=== PATIENT | female | born 1995 | race American Indian/Alaskan Native ===

== ENCOUNTER 2017-05-14 10:41 | Inpatient (IN) | payer BC, MEDICAID ==
[2017-05-14] MEDS ORDERED: Acetaminophen 325 MG Tab PO PRN ×2 (12:20→14:07)
[2017-05-14] MEDS ORDERED: Lactated Ringers 500 ML IV ONE (12:20)
[2017-05-14] MEDS ORDERED: Misoprostol 400 MCG (4 X 100 MCG TAB) RECTAL PRN (12:20)
[2017-05-14] MEDS ORDERED: Methylergonovine 0.2 MG/1 ML Amp IM PRN (12:20)
[2017-05-14] MEDS ORDERED: Lidocaine 1% 30 ML SDV INJECT PRN (12:20)
[2017-05-14] MEDS ORDERED: Carboprost Tromethamine 250 MCG/1 ML Amp IM PRN (12:20)
[2017-05-14] MEDS ORDERED: Sodium Chloride 0.9% 10 ML Syringe FLUSH PRN ×2 (12:20→14:07)
[2017-05-14] MEDS ORDERED: Ondansetron 4 MG/2 ML SDV IV PRN (12:20)
[2017-05-14] MEDS ORDERED: Lactated Ringers 1,000 ML IV SCH (12:30)
[2017-05-14] MEDS ORDERED: Misoprostol 25 MCG (1/4 of 100 MCG) Tab VAG PRN (14:07)
[2017-05-14] MEDS ORDERED: Oxytocin/Normal Saline 30 UNIT/500 ML BAG IV SCH (14:15)
[2017-05-14] MEDS ORDERED: fentaNYL 100 MCG/2 ML SDV ITHECAL ONE (14:26)
[2017-05-14] MEDS: Lactated Ringers 1,000 ML IV SCH ×4 (14:27→23:22)
[2017-05-14] MEDS ORDERED: fentaNYL 100 MCG/2 ML SDV ONE (20:24)
--- NOTE | 2017-05-14 20:59 | PCM.SN ---
- Free Text/Narrative Note: Called to provide labor pain relief via intrathecal for this patient. After hx reviewed, NPO status, recent VS obtained, monitors on, and consent signed, proceeded with intrathecal. With patient in sitting position, sterile prep/ drape. Skin wheal at L3-4 with 1% lidocaine. LP X1 at L3-4 with 24 g pencan spinal needle. Positive, clear, free flowing CSF. No heme, no paresthesia. Then 6mg mpf HB spinal 0.75% marcaine, 20mcg sufenta, 30mcg fentanyl, 0.4ml preservative free normal saline plus epi wash given intrathecal. Maternal B/P and FHT stable after. Block to around T4, pt reported pain relief with subsequent contractions.
[2017-05-14] MEDS: Prenatal Multivitamin with Calcium/Folic Acid/Iron Tab PO SCH (21:03)
[2017-05-14] MEDS: Ferrous Sulfate 325 MG Tab PO SCH (21:03)
--- NOTE | 2017-05-14 22:19 | HP ---
HISTORY OF PRESENT ILLNESS: This very pleasant 21-year-old 2, para 1 patient is now at 39 weeks 6 days' gestation. She is followed by Dr. Willingham, and I have seen her 2 or 3 times in the clinic prenatally as well. Her LMP was 07/27/2016 and would have given an CAT of 05/03/2017. Also, a very early ultrasound gives perhaps a more accurate CTA of 05/15/2017. She is currently at 39 weeks 6 days' gestation by those parameters. She has had frequent false labor recently and has had a couple or more brief visits to Labor and Delivery for her false labor recently. She did come in to the hospital this morning on Tuesday with a history of having spontaneous rupture of membranes at 10:00 a.m. today. The fluid was clear. She has been experiencing good movement lately. Her course reveals that she has had some anxiety and depression in the , and this has been controlled very nicely with Zoloft. She is known to be GBS negative, and blood type is A positive. It should be mentioned that her rubella testing is equivocal, and she will need vaccination with MMR. Please see the EHR as it pertains to the remainder of her history. PAST OBSTETRICAL HISTORY: She did have a 6-pound 14-ounce baby delivered by Dr. Licona in [place] in 2012. PAST MEDICAL HISTORY: She denies any knowledge of heart, lung, liver, or kidney disease. ALLERGIES: Amoxicillin and other penicillins cause hives. PREVIOUS SURGICAL HISTORY: Consists of cholecystectomy and wisdom tooth extraction. Her anxiety and depression have been stable in . MEDICATIONS: Other medication along with her vitamin does consist of Zoloft 50 mg daily. FAMILY HISTORY: Essentially noncontributory. SOCIAL HISTORY: She does live in [facility]. She denies the usage of alcohol, denies smoking, and denies illicit drugs. 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 Her significant other is Truong, and he will be arriving shortly for her labor. PHYSICAL EXAMINATION: Admission Vital Signs: Within normal limits. Please see the EHR. HEENT: Sclerae are nonicteric. Lungs: Clear to A. Heart: Regular rhythm without murmur. Abdomen: Gravid, and heart tones are category 1 with a 144 baseline. There is negative CVA tenderness. Pelvic: Initial pelvic exam is done by the nurses, and her cervix is still quite posterior as before, and the nurses find it hard to reach the cervix, but felt that it might be 1 cm to 1.5 cm in posterior. Vertex is the presenting part. Extremities: DTRs are normoreflexic, and there is no ankle edema. Neurologic: Grossly intact. IMPRESSION: A 21-year-old 2, para 1, who is in early labor with her contractions being about every 6 minutes apart. heart tones are category 1. She is at 39 weeks 6 days' gestation by good dates and ultrasound. She has had spontaneous rupture of membranes at 10:00 a.m. today. We will give her a chance for a few more hours to go into better quality spontaneous labor. If her contractions did not improve in quality over the next 2 to 3 hours or so, we will consider judicious augmentation of labor with IV Pitocin. The patient is in agreement with that, and we have thoroughly discussed that matter with her. We do anticipate spontaneous vaginal delivery. The patient does need MMR vaccination in the . Please see the admission lab data and admission orders. [facility] /[id number]
[2017-05-15] MEDS ORDERED: Oxytocin 10 Units/1 ML SDV IM PRN (00:39)
[2017-05-15] MEDS ORDERED: Simethicone 80 MG Tab.Chew PO PRN (00:39)
[2017-05-15] MEDS ORDERED: Zolpidem 5 MG Tab PO PRN (00:39)
[2017-05-15] MEDS ORDERED: Acetaminophen 325 MG Tab PO PRN (00:39)
[2017-05-15] MEDS ORDERED: Misoprostol 400 MCG (4 X 100 MCG TAB) RECTAL PRN (00:39)
[2017-05-15] MEDS ORDERED: Carboprost Tromethamine 250 MCG/1 ML Amp IM PRN (00:39)
[2017-05-15] MEDS ORDERED: Sodium Chloride 0.9% 10 ML Syringe FLUSH PRN (00:39)
[2017-05-15] MEDS ORDERED: Benzocaine/Menthol 20%-0.5% Spray 56 GM Canister TOP PRN (00:39)
--- NOTE | 2017-05-15 06:01 | DEL ---
DATE: DESCRIPTION: Diamante Rowe did require IV Pitocin augmentation of labor today. We did not need more than 11 milliunits of Pitocin to establish good quality of labor. She did have some episodes of variable deceleration seen at times and these variables would go down to the 90 and once in a while to the 80 range with good recovery. There was moderate variability and heart tone accelerations present. Also on our vaginal exams, there was always nice heart tone acceleration with scalp stimulation at examinations. She did proceed on to complete dilation and did begin pushing. Please see the EHR for the timing of her complete dilatation. She was able to bring the baby's head down nicely to the floor of the perineum or at +3 station or below. Once again she did begin to have the variable decelerations and at times this was bradycardia that would go into the 80s and briefly into the 70s. There was not as good a return to normal as previously in the labor and therefore when the baby's head was definitely on the floor of the perineum, I did elect to do a small to average midline episiotomy and employ the outlet or low forceps assist just because of her not being able to push the baby out and with this degree of bradycardia. We were able to get good traction and carefully using the Fernando Kiki or outlet forceps, we were able to bring the baby a little bit lower and right to the outlet and right to the introitus and then the forceps were removed. Now, the remainder of the delivery was accomplished as a spontaneous vaginal delivery from the occiput anterior position. We did not really witness a nuchal cord or shoulder cord as such. The baby was immediately suctioned upon delivery and had excellent muscle tone and good color. The scores were 9 and 10 on this viable baby girl. The weight was later reported as 8 pounds 3 ounces. A sample of cord blood was obtained. The baby was placed on the mother's abdomen and suctioned a bit further and remained in excellent condition at all times. The placenta was delivered spontaneously from the shiny Smith configuration. Placenta was spontaneous and intact. Estimated blood loss was approximately 200 mL. Vaginal canal was closely inspected and there were no vaginal or cervical lacerations. The patient did have a midline episiotomy in the second degree. IV Pitocin was now begun and the uterus did contract down nicely. The episiotomy repair was done by myself using 3-0 Vicryl. The patient had excellent analgesia from her intrathecal. The episiotomy repair was done without difficulty in the usual fashion. Sponge and instrument count was reported as correct. Her fundus remains firm with only minimal bleeding at this time. Her baby continues to do very well. [facility] /[id number]
[2017-05-15] MEDS: Prenatal Multivitamin with Calcium/Folic Acid/Iron Tab PO SCH ×2 (09:39→09:48)
[2017-05-15] MEDS: Ferrous Sulfate 325 MG Tab PO SCH (09:39)
[2017-05-15] MEDS: Docusate Sodium 100 MG Cap PO PRN ×2 (09:39→20:11)
[2017-05-15] MEDS: Ibuprofen 800 MG Tab PO PRN ×2 (09:39→20:11)
--- NOTE | 2017-05-15 11:41 | PN ---
DATE: 05/15/2017 SUBJECTIVE: In general, Diamante is doing very well today. She was able to get a moderate amount of rest early this morning after the delivery. She is breast feeding at the present time. She denies any significant complaints. OBJECTIVE: Her hemoglobin this morning is still pending. Her admission hemoglobin yesterday was 11.6. Vital Signs: All within normal limits including being afebrile. Abdomen: Soft and fundus is firm and appears to be involuting appropriately. Lochia flow is within normal limits. Extremities: Negative including negative Homans sign bilaterally. IMPRESSION: Stable course. Please see the EHR and early this morning dictation of delivery note. PLAN: The patient will do progressive ambulation and continue with adequate hydration and healthy nutritional measures. We did discuss with her some of the discharge instructions today, but we will thoroughly review all of those instructions again tomorrow. She will be discharged home tomorrow with baby. As mentioned above, she and her baby continue to do very well. [facility] /[id number]
[2017-05-15] MEDS ORDERED: Sertraline 50 MG Tab PO SCH (21:00)
[2017-05-16] MEDS: Prenatal Multivitamin with Calcium/Folic Acid/Iron Tab PO SCH ×2 (08:18→16:11)
[2017-05-16] MEDS: Ferrous Sulfate 325 MG Tab PO SCH (08:18)
[2017-05-16] MEDS: Ibuprofen 800 MG Tab PO PRN (08:18)
[2017-05-16] MEDS: Docusate Sodium 100 MG Cap PO PRN (08:19)
[2017-05-16 08:29] VITALS: BP 119/76
--- NOTE | 2017-05-16 08:49 | PCM.DCSUM1 ---
Discharge Summary - Hospital Course Free Text/Narrative:: 21-year-old now status post forceps assisted normal spontaneous vaginal delivery at 39 weeks 6 days gestation - Discharge Data Discharge Date: 05/16/17 Discharge Disposition: Home, Self-Care 01 Condition: Good - Patient Summary/Data Operative Procedure(s) Performed: None Complications: None Consults: None Labs Pending at D/C: None Recommended Follow-up Testing/Procedures: None Planned Operative Procedure(s) after DC: None Hospital Course: Unremarkable (please see subjective section) - Patient Instructions Diet: Usual Diet as Tolerated Activity: No Lifting Over 20 Pounds Driving: May Drive Today Showering/Bathing: May Shower Notify Provider of: Fever, Increased Pain, Swelling and Redness, Drainage, Nausea and/or Vomiting - Discharge Plan Home Medications: Home Meds Ferrous Sulfate 325 mg PO DAILY 05/11/17 [History] Avv492/FA/Omega3/Dha/Fish Oil [ Gummies] 1 each PO DAILY 05/11/17 [ History] Sertraline [Zoloft] 50 mg PO BEDTIME 05/11/17 [History] Ibuprofen [IJD: Ibuprofen] 800 mg PO Q8H PRN #0 tablet 05/16/17 [Rx] Patient Handouts: Episiotomy, Care After, Care After Vaginal Delivery Referrals: Safia Willingham MD [Primary Care Provider] - (6 week check up- please make that as it is convenient for you) - Discharge Summary/Plan Comment DC Time >30 min.: No Discharge Summary/Plan Comment: patient discharged home. Will follow-up in 6 weeks for routine visit. Reasons to return sooner were discussed with the patient. She voiced her understanding, and all questions were answered. Safia Willingham MD - General Info Date of Service: 05/16/17 Subjective Update: 21-year-old day #2 status post forceps assisted normal spontaneous vaginal delivery. Patient is doing well today. She still notes some perineal discomfort but states this is well-controlled with Tylenol and ibuprofen. She is tolerating a general diet. She is ambulating without dizziness or lightheadedness. She is urinating without difficulty. She has passed gas. Vaginal bleeding is decreasing. She is breast-feeding which is going fairly well. She has supplemented a little bit. No concerns per patient or per nursing. Functional Status: Reports: pain controlled, tolerating diet, ambulating, urinating. Denies: new symptoms - Review of Systems General: Reports: No Symptoms HEENT: Reports: no symptoms Pulmonary: Reports: no symptoms Cardiovascular: Reports: No Symptoms Gastrointestinal: Reports: No symptoms Genitourinary: Reports: no symptoms Musculoskeletal: Reports: no symptoms Skin: Reports: no symptoms - Patient Data Vitals - Most Recent: Last Vital Signs Temp 36.3 C 05/16/17 08:28 Pulse 72 05/16/17 08:28 Resp 16 05/16/17 08:28 BP 119/76 05/16/17 08:28 Pulse Ox 98 05/16/17 08:28 Weight - Most Recent: 66.224 kg Lab Results - Last 24 hrs: Laboratory Results - last 24 hr 05/16/17 Range/Units 06:17 WBC 10.7 H (5.0-10.0) 10^3/uL RBC 3.97 L (4.2-5.4) 10^6/uL Hgb 10.8 L (12.0-16.0) g/dL Hct 34.6 L (37.0-47.0) % MCV 87.2 (80-100) fL MCH 27.2 (27.0-34.0) pg MCHC 31.2 L (33.0-35.0) g/dL Plt Count 271 (150-450) 10^3/uL Med Orders - Current: Current Medications Acetaminophen (Tylenol) 650 mg PO Q4H PRN PRN Reason: Pain (Mild 1-3) and fever Acetaminophen (Tylenol) 650 mg PO Q4H PRN PRN Reason: Pain/Fever Acetaminophen (Tylenol) 650 mg PO Q6H PRN PRN Reason: mild pain or fever Benzocaine/Menthol (Dermoplast Pain Relief [place]) 0 gm TOP Q4H PRN PRN Reason: Perineal comfort measures Last Admin: 05/15/17 09:41 Dose: 1 spray Carboprost Tromethamine (Hemabate Ds) 250 mcg IM ASDIRECTED PRN PRN Reason: HEMORRHAGE Carboprost Tromethamine (Hemabate Ds) 250 mcg IM ASDIRECTED PRN PRN Reason: Excessive vaginal bleeding Docusate Sodium (Colace) 100 mg PO BID PRN PRN Reason: Constipation Last Admin: 05/16/17 08:19 Dose: 100 mg Ferrous Sulfate (Ferrous Sulfate) 325 mg PO DAILY BRAYAN Last Admin: 05/16/17 08:18 Dose: 325 mg Lactated Ringer's (Ringers, Lactated) 1,000 mls @ 125 mls/hr IV ASDIRECTED BRAYAN Last Admin: 05/14/17 23:22 Dose: 125 mls/hr Oxytocin/Sodium Chloride (Pitocin In Ns 30 Unit/500 Ml) 30 unit in 500 mls @ 1 mls/hr IV TITRATE BRAYAN; 1 MUNITS/MIN PRN Reason: Protocol Last Titration: 05/15/17 02:45 Dose: Infused Ibuprofen (Motrin) 800 mg PO Q8H PRN PRN Reason: Mild Pain or Fever Last Admin: 05/16/17 08:18 Dose: 800 mg Lidocaine HCl (Xylocaine-Mpf 1%) 10 ml INJECT ASDIRECTED PRN PRN Reason: Perineal Repair Methylergonovine Maleate (Methergine) 0.2 mg IM ASDIRECTED PRN PRN Reason: Hemorrhage Misoprostol (Cytotec) 800 mcg RECTAL ASDIRECTED PRN PRN Reason: Hemorrhage Misoprostol (Cytotec) 800 mcg RECTAL ONETIME PRN PRN Reason: Hemorrhage Ondansetron HCl (Zofran) 4 mg IV Q4H PRN PRN Reason: Nausea/Vomiting Last Admin: 05/14/17 20:15 Dose: 4 mg Oxytocin (Pitocin) 10 unit IM ONETIME PRN PRN Reason: Bleeding Prenat Multivit/Schley/Iron/Folic Ac ( Plus Iron) 1 each PO DAILY [facility] Last Admin: 05/15/17 09:48 Dose: Not Given Prenat Multivit/Asbestos Shingle Roofer/Iron/Folic Ac ( Plus Iron) 1 each PO DAILY BRAYAN Last Admin: 05/16/17 08:18 Dose: 1 each Sertraline HCl (Zoloft) 50 mg PO BEDTIME BRAYAN Last Admin: 05/15/17 22:22 Dose: 50 mg Simethicone (Simethicone) 80 mg PO Q4H PRN PRN Reason: Gas Sodium Chloride (Saline Flush) 10 ml FLUSH ASDIRECTED PRN PRN Reason: Keep Vein Open Sodium Chloride (Saline Flush) 10 ml FLUSH ASDIRECTED PRN PRN Reason: Keep Vein Open Discontinued Medications Fentanyl (Sublimaze) Confirm Administered Dose 100 mcg .ROUTE .STK-MED ONE Stop: 05/14/17 20:25 Last Admin: 05/15/17 13:50 Dose: Not Given Lactated Ringer's (Ringers, Lactated) 500 mls @ 125 mls/hr IV .BOLUS ONE Stop: 05/14/17 16:19 Last Admin: 05/15/17 08:07 Dose: Not Given Lactated Ringer's (Ringers, Lactated) 1,000 mls @ 125 mls/hr IV ASDIRECTED BRAYAN Misoprostol (Cytotec) 25 mcg VAG Q4H PRN PRN Reason: cervical ripening Stop: 05/15/17 18:08 Sodium Chloride (Saline Flush) 10 ml FLUSH ASDIRECTED PRN PRN Reason: Keep Vein Open Sufentanil Citrate (Sufenta) Confirm Administered Dose 50 mcg .ROUTE .STK-MED ONE Stop: 05/14/17 20:26 Last Admin: 05/15/17 13:50 Dose: Not Given Zolpidem Tartrate (Ambien) 5 mg PO BEDTIME PRN PRN Reason: Insomnia Stop: 05/15/17 21:01 - Exam General: Reports: alert, oriented Lungs: Reports: Clear to auscultation, Normal respiratory effort Cardiovascular: Reports: Regular Rate, Regular Rhythm, No Murmurs Abdomen: Reports: bowel sounds present, soft, no tenderness, no distension Extremities: Reports: no edema Skin: Reports: warm, dry, intact *Q Meaningful Use (DIS) - VTE *Q VTE Criteria *Q: - Stroke *Q Stroke Criteria *Q: - AMI *Q AMI Criteria *Q:
--- NOTE | 2017-05-16 10:01 | PCM.POSTAN ---
POST ANESTHESIA ASSESSMENT - MENTAL STATUS Mental Status: alert - VITAL SIGNS Pulse Rate: 72 SaO2: 98 Resp Rate: 16 Blood Pressure: 119/76 Temperature: 36.3 C - RESPIRATORY Respiratory Status: respiratory rate WNL - CARDIOVASCULAR CV Status: pulse rate WNL - GASTROINTESTINAL GI Status: no symptoms - POST OP HYDRATION Hydration Status: adequate & stable - OBSERVATIONS Free Text/Narrative:: No c/o PONV, no c/o PDPH, no c/o paresthesias. Pt is without c/o except mild, resolving pain at intrathecal injection point, not requiring medications. No post anesthesia complications noted.
[2017-05-16] MEDS: Measles, Mumps & Rubella Vaccine 0.5 ML SDV SUBCUT ONE ×2 (13:20→16:29)
== END 2017-05-16 13:50 | disposition home or self-care (01) | DRG 560 ==
LOC: DL.OBCHECK 10:41 → DL.OB 11:03 → MERGE 23:58 → OBSVTOIN 23:58 → DL.OB 23:58
PROVIDERS: ADMIT Obstetrics & Gynecology; ATTEND Obstetrics & Gynecology
PROC: 10D07Z3 Extraction of Products of Conception, Low Forceps, Via Natural or Artificial Opening (ICD-10-PCS; principal; 2017-05-14)
PROC: 0W8NXZZ Division of Female Perineum, External Approach (ICD-10-PCS; 2017-05-14)
PROC: 0KQM0ZZ Repair Perineum Muscle, Open Approach (ICD-10-PCS; 2017-05-14)
PROC: 00HU33Z Insertion of Infusion Device into Spinal Canal, Percutaneous Approach (ICD-10-PCS; 2017-05-14)
PROC: 3E0R3CZ (ICD-10-PCS; 2017-05-14)
DX: O42.02 Full-term premature rupture of membranes, onset of labor within 24 hours of rupture (principal); Z3A.40 40 weeks gestation of pregnancy; Z37.0 Single live birth; O99.344 Other mental disorders complicating childbirth; F41.9 Anxiety disorder, unspecified; F32.9 Major depressive disorder, single episode, unspecified; Z88.0 Allergy status to penicillin; Z88.1 Allergy status to other antibiotic agents; Z79.899 Other long term (current) drug therapy; O76 Abnormality in fetal heart rate and rhythm complicating labor and delivery
CPT/HCPCS: 36415; 85027; 90707; A9270-GY; J2405; J2590; J3010; J7120

== ENCOUNTER 2018-04-14 19:22 | Inpatient (IN) | payer BC, MEDICAID ==
[2018-04-14] MEDS ORDERED: fentaNYL 100 MCG/2 ML SDV IVPUSH PRN (21:28)
[2018-04-14] MEDS ORDERED: Oxytocin/Normal Saline 30 UNIT/500 ML BAG IV SCH (21:30)
[2018-04-14] MEDS ORDERED: Nalbuphine 10 MG/1 ML Vial IM PRN (21:30)
[2018-04-14] MEDS ORDERED: Ondansetron 4 MG/2 ML SDV IV PRN (21:31)
[2018-04-14] MEDS ORDERED: Oxytocin 10 Units/1 ML SDV IM PRN (22:52)
[2018-04-14] MEDS ORDERED: Simethicone 80 MG Tab.Chew PO PRN (22:52)
[2018-04-14] MEDS ORDERED: Measles, Mumps & Rubella Vaccine 0.5 ML SDV SUBCUT ONE (22:52)
[2018-04-14] MEDS ORDERED: Sodium Chloride 0.9% 10 ML Syringe FLUSH PRN (22:52)
[2018-04-14] MEDS ORDERED: Zolpidem 5 MG Tab PO PRN (22:52)
[2018-04-14] MEDS ORDERED: Carboprost Tromethamine 250 MCG/1 ML Amp IM PRN (22:52)
[2018-04-14] MEDS ORDERED: Misoprostol 400 MCG (4 X 100 MCG TAB) RECTAL PRN (22:52)
[2018-04-14] MEDS ORDERED: Acetaminophen 325 MG Tab PO PRN (22:52)
[2018-04-14] MEDS ORDERED: Benzocaine/Menthol 20%-0.5% Spray 56 GM Canister TOP PRN (22:52)
[2018-04-14] MEDS ORDERED: Tranexamic Acid 1,000 MG in Sodium Chloride 0.9% 100 ML IV PRN (22:52)
--- NOTE | 2018-04-15 00:09 | HP ---
CHIEF COMPLAINT: "I think I'm in labor." HISTORY OF PRESENT ILLNESS: Ms. Rowe is a 22-year-old, 3, para 2-0-0-2 female. Last menstrual period unsure. EDC 04/25/2018, EGA 38 and 3/7 weeks' gestation, which is consistent with a 9 and 3/7 week ultrasound. She reports to Labor and Delivery with increasing force and frequency of contractions. The contractions are anywhere between 10 and 15 minutes apart. She denies any vaginal bleeding or leakage of fluid. She denies any nausea, vomiting, or diarrhea. No fever or chills. No hematochezia, hematemesis, or hematuria. No dysuria, frequency, or urgency with urination. No leg pain, leg edema, severe back or abdominal pain. She did have history of gestational diabetes with it being diet controlled. No other issues. PAST MEDICAL HISTORY: Positive for gestational diabetes. No history of asthma, allergies, cancer, heart disease, hypertension, thromboembolic disease, seizure disorder, lung problems, kidney problems, or breast lesions. FAMILY HISTORY: Positive for diabetes. No family history of hypertension, heart disease, cancer, thyroid disorder, or seizure disorder. No thromboembolic disease. SOCIAL HISTORY: The patient is a previous smoker. She has not smoked since she has been . She denies any alcohol use or illicit drug use. She is single. She does have a significant other who is involved. She lives in [place]. MEDICATIONS: vitamins. ALLERGIES: Amoxicillin causes hives. GYNECOLOGICAL HISTORY: No history of STIs or abnormal Pap smears. OBSTETRICAL HISTORY: On 08/28/2013, delivery of 6 pounds 14 ounces female via normal spontaneous vaginal delivery. On 05/14/2017, delivery of an 8 pounds 3 ounces female via normal spontaneous vaginal delivery. Both were term. PAST SURGICAL HISTORY: Cholecystectomy 2 years ago. REVIEW OF SYSTEMS: All pertinent positives and negatives review of systems per HPI. All other systems reviewed are negative. A 10-point review of systems discussed with the patient. She has no issues. LABORATORY DATA: Blood type A positive. Antibody screen negative. Group B strep vaginal culture negative. Hepatitis B surface antigen negative. RPR nonreactive. Hepatitis C antibody nonreactive. Rubella nonimmune. WBC 10.1, hemoglobin 9.9, hematocrit 31.5, platelet count 305,000. Glucose 86. OBJECTIVE: General: A well-developed, well-nourished female, in no acute distress. Vital Signs: Stable. Afebrile. HEENT: Unremarkable. Neck: Supple. No adenopathy. No thyromegaly. Lungs: Clear to auscultation. No wheezing, rhonchi, or rales noted. Cardiovascular: Regular rate and rhythm without murmurs. Abdomen: Soft, gravid. Fundal height 38 cm. heart tones in the 130s to 140s, category 1 reactive strip. Contractions every 10 to 15 minutes. Cervix 5 cm dilated, 80% effaced, -2 station, posterior, and soft. Artificial rupture of membranes of clear fluid. Extremities: No edema, erythema, or tenderness noted. ASSESSMENT: 1. A 38 and 3/7 weeks' intrauterine . 2. Active labor. 3. Gestational diabetes, diet controlled, well controlled. 4. Rubella nonimmune. PLAN: 1. Admit. 2. Expect vaginal delivery. 3. We will give MMR after delivery. 4. The patient will get IV pain medications and intrathecal as needed for pain control. 5. All questions answered. [facility] /[id number]
[2018-04-15] MEDS: Lactated Ringers 1,000 ML IV SCH ×2 (02:19→05:22)
[2018-04-15] MEDS ORDERED: fentaNYL 100 MCG/2 ML SDV ONE (05:33)
[2018-04-15] MEDS ORDERED: Bupivacaine 0.75%/D5W 2 ML Amp ONE (05:33)
[2018-04-15] MEDS ORDERED: EPINEPHrine 1 MG/ML SDV ONE (05:34)
--- NOTE | 2018-04-15 06:18 | PCM.PRNOTE ---
- Free Text/Narrative Note: Requested to provide analgesia to full term patient in severe pain. Upon entering the room, patient is supine in bed complaining of severe abdominal/ pelvic pain and discomfort. Procedure was discussed with patient including adverse outcomes and expectations. Pt consented to analgesia, SAB/IT. Pt placed into a sitting position. Landmarks for SAB/IT were identified and marked. Hands were washed and appropriate PPE was applied. Back was prepped with betadine x3. A sterile, transparent, fenestrated drape was applied. Excess betadine was removed. Using 3 mL of a 1% lidocaine solution, a skin wheel was placed at the L3/L4 interspace. A 24 ga (4 inch) Sprotte spinal needle was inserted until positive for CSF. Negative for heme or paresthesias. Injected fentanyl 30 mcg, sufentanil 20 mcg, and 9 mg of a 0.75% bupivacaine solution with an epi wash. Pt was placed left lateral position for approximately 20 minutes. There were zero complications or adverse outcomes. Will continue to monitor. Procedure Date & Time: 04/15/2018 [id number]
--- NOTE | 2018-04-15 08:16 | OR ---
DATE: 04/15/2018 PREDELIVERY DIAGNOSES: 1. A 38 and 4/7 weeks' intrauterine . 2. Active labor. 3. Artificial rupture of membranes. 4. Gestational diabetes, diet controlled, well controlled. 5. Rubella nonimmune. POSTDELIVERY DIAGNOSES: 1. A 38 and 4/7 weeks' intrauterine . 2. Active labor. 3. Artificial rupture of membranes. 4. Gestational diabetes, diet controlled, well controlled. 5. Rubella nonimmune. 6. Delivery of a viable male weighing 8 pounds 7 ounces, 19-1/2 inches long with scores of 9 at 1 minute, 9 at 5 minutes. PROCEDURE: Normal spontaneous vaginal delivery. COMPLICATIONS: None. FLUIDS: Crystalloid/LR. DRAINS: None. PATHOLOGY: None. ANESTHESIA: Intrathecal. FINDINGS: Viable male , weighing 8 pounds 7 ounces, 19-1/2 inches long with scores of 9 at 1 minute, 9 at 5 minutes. DESCRIPTION OF PROCEDURE: The patient was admitted 5 cm dilated, and she did well throughout the night. When she did not make change, artificial rupture of membranes occurred with clear fluid noted. Again, no cervical change occurred, so Pitocin augmentation was started. She tolerated her labor quite well. Once she got uncomfortable, intrathecal anesthesia was obtained, then she went quickly to complete, then she started pushing. She then had a normal spontaneous vaginal delivery of a viable male infant, weighing 8 pounds 7 ounces, 19-1/2 inches long with scores of 9 at 1 minute, 9 at 5 minutes over a second-degree midline perineal laceration. This was repaired with 2-0 Vicryl and 3-0 chromic suture without difficulty. The cord was 3 vessel, not around the neck. The placenta was then delivered by simple expression intact. The labia, vagina, and cervix were inspected and intact. No complications occurred. The patient recovered. The infant went to the nursery. The patient will get MMR vaccine. The patient's blood sugar did quite well throughout her labor process. She will be checked at her 6-week checkup with a 2-hour glucose tolerance test to make sure she is not diabetic outside of . [facility] /[id number]
[2018-04-15] MEDS ORDERED: DHA PO SCH (09:00)
[2018-04-15] MEDS ORDERED: OMEGA3 PO SCH (09:00)
[2018-04-15] MEDS ORDERED: [UNRECOGNIZED DRUG - OTHER] PO SCH (09:00)
[2018-04-15] MEDS ORDERED: FISH OIL PO SCH (09:00)
[2018-04-15] MEDS: Prenatal Multivitamin with Calcium/Folic Acid/Iron Tab PO SCH (10:31)
[2018-04-15] MEDS: Ferrous Sulfate 325 MG Tab PO SCH ×3 (10:32→17:20)
[2018-04-15] MEDS: Ibuprofen 800 MG Tab PO PRN ×2 (13:13→21:30)
[2018-04-15] MEDS: Docusate Sodium 100 MG Cap PO PRN ×2 (13:13→17:21)
[2018-04-16] MEDS: Prenatal Multivitamin with Calcium/Folic Acid/Iron Tab PO SCH (09:14)
[2018-04-16] MEDS: Ferrous Sulfate 325 MG Tab PO SCH ×3 (09:14→17:20)
[2018-04-16] MEDS: Docusate Sodium 100 MG Cap PO PRN ×2 (09:14→21:23)
[2018-04-16] MEDS: Ibuprofen 800 MG Tab PO PRN ×2 (09:14→23:37)
--- NOTE | 2018-04-16 10:49 | PCM.PNPP ---
- General Info Date of Service: 04/16/18 (PPD # 1 S/P ) Functional Status: Reports: Pain Controlled, Tolerating Diet, Ambulating - Review of Systems General: Reports: No Symptoms HEENT: Reports: No Symptoms Pulmonary: Reports: No Symptoms Cardiovascular: Reports: No Symptoms Gastrointestinal: Reports: No Symptoms Genitourinary: Reports: No Symptoms Musculoskeletal: Reports: No Symptoms Skin: Reports: No Symptoms Neurological: Reports: No Symptoms Psychiatric: Reports: No Symptoms - General Info Date of Service: 04/16/18 (PPD # 1 S/P ) - Patient Data Vital Signs - Most Recent: Last Vital Signs Temp 96.9 F 04/15/18 19:39 Pulse 77 04/15/18 19:39 Resp 18 04/15/18 19:39 BP 137/72 04/15/18 19:39 Pulse Ox 99 04/15/18 19:39 Weight - Most Recent: 200 lb Lab Results - Last 24 Hours: Laboratory Results - last 24 hr 04/16/18 Range/Units 06:20 WBC 12.0 H (5.0-10.0) 10^3/uL RBC 3.82 L (4.2-5.4) 10^6/uL Hgb 9.9 L (12.0-16.0) g/dL Hct 31.5 L (37.0-47.0) % MCV 82.5 (80-100) fL MCH 25.9 L (27.0-34.0) pg MCHC 31.4 L (33.0-35.0) g/dL Plt Count 267 (150-450) 10^3/uL Neut % (Auto) 67.9 (42.2-75.2) % Lymph % (Auto) 23.9 (20.5-50.1) % [place] % (Auto) 6.8 (2-8) % Eos % (Auto) 1.2 (1.0-3.0) % Baso % (Auto) 0.2 (0.0-1.0) % Med Orders - Current: Current Medications Acetaminophen (Tylenol) 650 mg PO Q6H PRN PRN Reason: mild pain or fever Last Admin: 04/15/18 19:37 Dose: 650 mg Benzocaine/Menthol (Dermoplast Pain Relief [place]) 0 gm TOP Q4H PRN PRN Reason: Perineal comfort measures Last Admin: 04/15/18 13:12 Dose: 1 spray Carboprost Tromethamine (Hemabate Ds) 250 mcg IM ASDIRECTED PRN PRN Reason: Excessive vaginal bleeding Docusate Sodium (Colace) 100 mg PO BID PRN PRN Reason: Constipation Last Admin: 04/16/18 09:14 Dose: 100 mg Fentanyl (Sublimaze) 50 mcg IVPUSH ONETIME PRN PRN Reason: Abdominal Pain Ferrous Sulfate (Ferrous Sulfate) 325 mg PO TIDMEALS [facility] Last Admin: 04/16/18 09:14 Dose: 325 mg Oxytocin/Sodium Chloride (Pitocin In Ns 30 Unit/500 Ml) 30 unit in 500 mls @ 2 mls/hr IV TITRATE [facility]; Protocol Last Titration: 04/15/18 09:00 Dose: 0 munits/min, 0 mls/hr Lactated Ringer's (Ringers, Lactated) 1,000 mls @ 125 mls/hr IV ASDIRECTED [facility] Last Admin: 04/15/18 05:22 Dose: 125 mls/hr Tranexamic Acid 1,000 mg/ (Sodium Chloride) 110 mls @ 660 mls/hr IV ONETIME PRN PRN Reason: Bleeding Ibuprofen (Motrin) 800 mg PO Q8H PRN PRN Reason: Mild Pain or Fever Last Admin: 04/16/18 09:14 Dose: 800 mg Misoprostol (Cytotec) 800 mcg RECTAL ONETIME PRN PRN Reason: Hemorrhage Nalbuphine HCl (Nubain) 20 mg IM ONETIME PRN PRN Reason: Pain Ondansetron HCl (Zofran) 4 mg IV Q6HR PRN PRN Reason: Nausea/Vomiting Last Admin: 04/15/18 05:21 Dose: 4 mg Oxytocin (Pitocin) 10 unit IM ONETIME PRN PRN Reason: Bleeding Prenat Multivit/Mutuel Clerk/Iron/Folic Ac ( Plus Iron) 1 each PO DAILY [facility] Last Admin: 04/16/18 09:14 Dose: 1 each Simethicone (Simethicone) 80 mg PO Q4H PRN PRN Reason: Gas Sodium Chloride (Saline Flush) 10 ml FLUSH ASDIRECTED PRN PRN Reason: Keep Vein Open Zolpidem Tartrate (Ambien) 5 mg PO BEDTIME PRN PRN Reason: Insomnia Discontinued Medications Bupivacaine HCl/Dextrose (Marcaine 0.75% Spinal) Confirm Administered Dose 2 ml .ROUTE .STK-MED ONE Stop: 04/15/18 05:34 Last Admin: 04/15/18 07:00 Dose: Not Given Epinephrine HCl (Adrenalin) Confirm Administered Dose 1 mg .ROUTE .STK-MED ONE Stop: 04/15/18 05:35 Last Admin: 04/15/18 07:00 Dose: Not Given Fentanyl (Sublimaze) Confirm Administered Dose 100 mcg .ROUTE .STK-MED ONE Stop: 04/15/18 05:34 Last Admin: 04/15/18 07:00 Dose: Not Given Measles/Mumps/Rubella Vaccine Live (M-M-R Ii Vaccine) 0.5 ml SUBCUT .ONCE ONE Stop: 04/14/18 22:53 Last Admin: 04/15/18 14:52 Dose: 0.5 ml Non-Formulary Medication (Hin183/Fa/Omega3/Dha/Fish Oil [ Gummies]) 1 each PO DAILY [facility] Sufentanil Citrate (Sufenta) Confirm Administered Dose 50 mcg .ROUTE .STK-MED ONE Stop: 04/15/18 05:35 Last Admin: 04/15/18 07:00 Dose: Not Given - Interaction Infant Disposition, : to Nursery Interaction: Holding Feeding: Bottle Fed Support Person: Significant Other - Recovery Exam Fundal Tone: Firm Fundal Level: 1 Fingerbreadths Below Umbilicus Fundal Placement: Midline Lochia Amount: Small Lochia Color: Rubra/Red Perineum Description: Intact, Minimal Bruising/Swelling Episiotomy/Laceration: Approximated Bladder Status: Nonpalpable - Exam General: Alert, Oriented, Cooperative, No Acute Distress HEENT: Pupils Equal, Pupils Reactive, EOMI, Mucous Membr. Moist/[place] Neck: Supple Lungs: Clear to Auscultation, Normal Respiratory Effort Cardiovascular: Regular Rate, Regular Rhythm GI/Abdominal Exam: Normal Bowel Sounds, Soft, Non-Tender, No Distention Extremities: Normal Inspection, Normal Range of Motion, Non-Tender, No Pedal Edema Skin: Warm, Dry, Intact Neurological: No New Focal Deficit, Normal Gait, Normal Speech Psy/Mental Status: Alert, Normal Affect, Normal Mood - Problem List Review Problem List Initiated/Reviewed/Updated: Yes - Assessment Assessment:: PPD # 1 S/P Doing well Chronic anemia secondary to - Plan Plan:: Continue present care. FeSO4 1 tab BID po
[2018-04-16 20:55] VITALS: BP 136/87
--- NOTE | 2018-04-17 04:03 | PCM.PNPP ---
- General Info Date of Service: 04/17/18 (PPD # 2 S/P ) Functional Status: Reports: Pain Controlled, Tolerating Diet, Ambulating, Urinating - Review of Systems General: Reports: No Symptoms HEENT: Reports: No Symptoms Pulmonary: Reports: No Symptoms Cardiovascular: Reports: No Symptoms Gastrointestinal: Reports: No Symptoms Genitourinary: Reports: No Symptoms Musculoskeletal: Reports: No Symptoms Skin: Reports: No Symptoms Neurological: Reports: No Symptoms Psychiatric: Reports: No Symptoms - General Info Date of Service: 04/17/18 (PPD # 2 S/P ) - Patient Data Vital Signs - Most Recent: Last Vital Signs Temp 97.6 F 04/16/18 20:00 Pulse 68 04/16/18 20:00 Resp 20 04/16/18 20:00 BP 136/87 04/16/18 20:00 Pulse Ox 98 04/16/18 20:00 Weight - Most Recent: 200 lb Lab Results - Last 24 Hours: Laboratory Results - last 24 hr 04/16/18 Range/Units 06:20 WBC 12.0 H (5.0-10.0) 10^3/uL RBC 3.82 L (4.2-5.4) 10^6/uL Hgb 9.9 L (12.0-16.0) g/dL Hct 31.5 L (37.0-47.0) % MCV 82.5 (80-100) fL MCH 25.9 L (27.0-34.0) pg MCHC 31.4 L (33.0-35.0) g/dL Plt Count 267 (150-450) 10^3/uL Neut % (Auto) 67.9 (42.2-75.2) % Lymph % (Auto) 23.9 (20.5-50.1) % [place] % (Auto) 6.8 (2-8) % Eos % (Auto) 1.2 (1.0-3.0) % Baso % (Auto) 0.2 (0.0-1.0) % Med Orders - Current: Current Medications Acetaminophen (Tylenol) 650 mg PO Q6H PRN PRN Reason: mild pain or fever Last Admin: 04/15/18 19:37 Dose: 650 mg Benzocaine/Menthol (Dermoplast Pain Relief [place]) 0 gm TOP Q4H PRN PRN Reason: Perineal comfort measures Last Admin: 04/15/18 13:12 Dose: 1 spray Carboprost Tromethamine (Hemabate Ds) 250 mcg IM ASDIRECTED PRN PRN Reason: Excessive vaginal bleeding Docusate Sodium (Colace) 100 mg PO BID PRN PRN Reason: Constipation Last Admin: 04/16/18 21:23 Dose: 100 mg Fentanyl (Sublimaze) 50 mcg IVPUSH ONETIME PRN PRN Reason: Abdominal Pain Ferrous Sulfate (Ferrous Sulfate) 325 mg PO TIDMEALS [facility] Last Admin: 04/16/18 17:20 Dose: 325 mg Oxytocin/Sodium Chloride (Pitocin In Ns 30 Unit/500 Ml) 30 unit in 500 mls @ 2 mls/hr IV TITRATE [facility]; Protocol Last Titration: 04/15/18 09:00 Dose: 0 munits/min, 0 mls/hr Lactated Ringer's (Ringers, Lactated) 1,000 mls @ 125 mls/hr IV ASDIRECTED [facility] Last Admin: 04/15/18 05:22 Dose: 125 mls/hr Tranexamic Acid 1,000 mg/ (Sodium Chloride) 110 mls @ 660 mls/hr IV ONETIME PRN PRN Reason: Bleeding Ibuprofen (Motrin) 800 mg PO Q8H PRN PRN Reason: Mild Pain or Fever Last Admin: 04/16/18 23:37 Dose: 800 mg Misoprostol (Cytotec) 800 mcg RECTAL ONETIME PRN PRN Reason: Hemorrhage Nalbuphine HCl (Nubain) 20 mg IM ONETIME PRN PRN Reason: Pain Ondansetron HCl (Zofran) 4 mg IV Q6HR PRN PRN Reason: Nausea/Vomiting Last Admin: 04/15/18 05:21 Dose: 4 mg Oxytocin (Pitocin) 10 unit IM ONETIME PRN PRN Reason: Bleeding Prenat Multivit/Clinical Academic Allergist/Iron/Folic Ac ( Plus Iron) 1 each PO DAILY [facility] Last Admin: 04/16/18 09:14 Dose: 1 each Simethicone (Simethicone) 80 mg PO Q4H PRN PRN Reason: Gas Sodium Chloride (Saline Flush) 10 ml FLUSH ASDIRECTED PRN PRN Reason: Keep Vein Open Zolpidem Tartrate (Ambien) 5 mg PO BEDTIME PRN PRN Reason: Insomnia Discontinued Medications Bupivacaine HCl/Dextrose (Marcaine 0.75% Spinal) Confirm Administered Dose 2 ml .ROUTE .STK-MED ONE Stop: 04/15/18 05:34 Last Admin: 04/15/18 07:00 Dose: Not Given Epinephrine HCl (Adrenalin) Confirm Administered Dose 1 mg .ROUTE .STK-MED ONE Stop: 04/15/18 05:35 Last Admin: 04/15/18 07:00 Dose: Not Given Fentanyl (Sublimaze) Confirm Administered Dose 100 mcg .ROUTE .STK-MED ONE Stop: 04/15/18 05:34 Last Admin: 04/15/18 07:00 Dose: Not Given Measles/Mumps/Rubella Vaccine Live (M-M-R Ii Vaccine) 0.5 ml SUBCUT .ONCE ONE Stop: 04/14/18 22:53 Last Admin: 04/15/18 14:52 Dose: 0.5 ml Non-Formulary Medication (Rto095/Fa/Omega3/Dha/Fish Oil [ Gummies]) 1 each PO DAILY [facility] Sufentanil Citrate (Sufenta) Confirm Administered Dose 50 mcg .ROUTE .STK-MED ONE Stop: 04/15/18 05:35 Last Admin: 04/15/18 07:00 Dose: Not Given - Infant Interaction Infant Disposition, : to Nursery Infant Interaction: Holding Infant Feeding: Bottle Fed Infant Support Person: Significant Other - Recovery Exam Fundal Tone: Firm Fundal Level: 1 Fingerbreadths Below Umbilicus Fundal Placement: Midline Lochia Amount: Small Lochia Color: Rubra/Red Perineum Description: Intact, Minimal Bruising/Swelling Episiotomy/Laceration: Approximated Bladder Status: Nonpalpable Urinary Elimination: Voided - Exam General: Alert, Oriented, Cooperative, No Acute Distress HEENT: Pupils Equal, Pupils Reactive Neck: Supple Lungs: Clear to Auscultation, Normal Respiratory Effort Cardiovascular: Regular Rate, Regular Rhythm GI/Abdominal Exam: Normal Bowel Sounds, Soft, Non-Tender, No Distention Extremities: Normal Inspection, Normal Range of Motion, Non-Tender, No Pedal Edema Skin: Warm, Dry, Intact Wound/Incisions: Healing Well Neurological: No New Focal Deficit Psy/Mental Status: Alert, Normal Affect, Normal Mood - Problem List Review Problem List Initiated/Reviewed/Updated: Yes - My Orders Last 24 Hours: My Active Orders 04/17/18 03:57 Ready for Discharge [RC] PER UNIT ROUTINE - Assessment Assessment:: PPD # 2 S/P Doing well Chronic anemia secondary to - Plan Plan:: Discharge to home Follow-up with Dr. Cedeno Ibuprofen and Tylenol for pain as needed
[2018-04-17] MEDS ORDERED: Bupivacaine 0.75%/D5W 2 ML Amp ONE (09:34)
[2018-04-17] MEDS ORDERED: EPINEPHrine 1 MG/ML SDV IV ONE (09:34)
[2018-04-17] MEDS ORDERED: fentaNYL 100 MCG/2 ML SDV ITHECAL ONE (09:34)
[2018-04-17] MEDS: Ferrous Sulfate 325 MG Tab PO SCH (10:50)
[2018-04-17] MEDS: Prenatal Multivitamin with Calcium/Folic Acid/Iron Tab PO SCH (10:50)
--- NOTE | 2018-04-18 03:29 | DISCH ---
INDICATION FOR ADMISSION: Ms. Rowe is a 22-year-old 3, para 2-0-0-2 female, who reported to Labor and Delivery at 38-3/7 weeks' gestation with increasing force and frequency of contractions and active labor. She was noted to be 5 cm dilated. Her only issue she had was gestational diabetes that was diet controlled, well controlled through her and rubella nonimmune. She tolerated her labor quite well, but did need Pitocin augmentation, which was started along with artificial rupture of membranes of clear fluid. She did get intrathecal anesthesia to help with her discomfort. Once she got to complete, she started pushing, and she had a normal spontaneous vaginal delivery of a viable male weighing 8 pounds 7 ounces and 19-1/2 inches long with scores of 9 at 1 minute and 9 at 5 minute over a second-degree midline perineal laceration. This was repaired with 2-0 Vicryl suture and 3-0 chromic suture. She recovered for a couple hours. The did quite well. She had no other complications throughout her hospital stay. She was afebrile. Vital signs were stable. She tolerated her diet well and ambulated quite well. She was discharged to home on day #2. LABORATORY AND DIAGNOSTIC STUDIES: 04/14/2018; WBC 10.1, hemoglobin 9.9, hematocrit 31.5, and platelet count 305,000. 04/16/2018; WBC 12.0, hemoglobin 9.9, hematocrit 31.5, and platelet count 267,000. DISCHARGE INSTRUCTIONS: 1. Discharged to home. 2. Follow up with Dr. 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 DISCHARGE MEDICATIONS: 1. Iron 1 tablet t.i.d. 2. vitamin 1 tablet daily. 3. Ibuprofen 800 mg 1 tablet t.i.d. p.r.n. for discomfort. 4. Tylenol p.r.n. for discomfort. DISCHARGE DIAGNOSES: 1. A 38-4/7 weeks' intrauterine . 2. Active labor. 3. Artificial rupture of membranes. 4. Pitocin augmentation. 5. Gestational diabetes, diet controlled, well controlled. 6. Rubella nonimmune. 7. Normal spontaneous vaginal delivery of a viable male infant weighing 8 pounds 7 ounces and 19-1/2 inches long with scores of 9 at 1 minute and 9 at 5 minutes. 8. Intrathecal anesthesia. 9. Chronic anemia of . [facility] /[id number]
== END 2018-04-17 09:35 | disposition home or self-care (01) | DRG 560 ==
LOC: DL.OBCHECK 19:22 → DL.OB 21:26 → OBSVTOIN 04-15 06:39
PROVIDERS: ADMIT Obstetrics & Gynecology; ATTEND Obstetrics & Gynecology
PROC: 3E0134Z Introduction of Serum, Toxoid and Vaccine into Subcutaneous Tissue, Percutaneous Approach (ICD-10-PCS; 2018-04-14)
PROC: 3E0S3GC Introduction of Other Therapeutic Substance into Epidural Space, Percutaneous Approach (ICD-10-PCS; 2018-04-14)
PROC: 10E0XZZ Delivery of Products of Conception, External Approach (ICD-10-PCS; principal; 2018-04-15)
PROC: 10907ZC Drainage of Amniotic Fluid, Therapeutic from Products of Conception, Via Natural or Artificial Opening (ICD-10-PCS; 2018-04-15)
PROC: 0KQM0ZZ Repair Perineum Muscle, Open Approach (ICD-10-PCS; 2018-04-15)
DX: O24.420 Gestational diabetes mellitus in childbirth, diet controlled (principal); Z3A.38 38 weeks gestation of pregnancy; Z37.0 Single live birth; O70.1 Second degree perineal laceration during delivery; O99.013 Anemia complicating pregnancy, third trimester; D63.8 Anemia in other chronic diseases classified elsewhere; Z83.3 Family history of diabetes mellitus; Z88.0 Allergy status to penicillin; Z87.891 Personal history of nicotine dependence; Z23 Encounter for immunization
CPT/HCPCS: 36415; 59300; 59409; 82962; 85025; 85027; 90707; A9270-GY; J0171; J2405; J2590; J3010; J7120

== ENCOUNTER 2019-12-11 19:43 | Emergency (ER) | payer BC, MEDICAID, OTHER ==
[2019-12-11 20:23] VITALS: BP 112/74; PULSE 78
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
[2019-12-11] MEDS ORDERED: GI Cocktail Oral Solution 30 ML PO ONE (20:29)
== END 2019-12-11 21:11 | disposition home or self-care (01) ==
LOC: DL.ED 19:43
DX: K21.9 Gastro-esophageal reflux disease without esophagitis (principal); F17.210 Nicotine dependence, cigarettes, uncomplicated; Z88.0 Allergy status to penicillin
CPT/HCPCS: 99283; A9270